=== PATIENT | male | born 1980 | race Caucasian/White ===

== ENCOUNTER → 2019-08-26 | Outpatient (CLI) | payer BC | END | disposition home or self-care (01) | LOC: OIH 14:39 | PROVIDERS: ATTEND Internal Medicine | DX: S63.501A Unspecified sprain of right wrist, initial encounter (principal); Y93.89 Activity, other specified; Y92.89 Other specified places as the place of occurrence of the external cause; Y99.8 Other external cause status | CPT/HCPCS: 73100 ==